=== PATIENT | female | born 1980 | race Caucasian/White ===

== ENCOUNTER 2018-01-12 08:03 | Emergency (ER) | payer OTHER ==
[~2018-01-12] VITALS: Ht 157.5 cm; Wt 81.6 kg
[2018-01-12] MEDS ORDERED: NORFLEX100MG PO (11:03)
[2018-01-12] MEDS ORDERED: KETO10TA2 PO (11:03)
== END 2018-01-12 11:48 | disposition home or self-care (01) ==
LOC: ER 08:03
DX: M54.5 Low back pain (principal)

== ENCOUNTER 2018-03-30 02:23 | Emergency (ER) | payer OTHER ==
[~2018-03-30] VITALS: Ht 157.5 cm; Wt 86.2 kg
[~2018-03-30 02:23] MED LIST: KETO10TA2 PO; NORFLEX100MG PO
[2018-03-30] MEDS ORDERED: ADVAIR 100-501 EACH IH (07:48)
[2018-03-30] MEDS ORDERED: SINGULAIR 10MG10 MG PO (07:48)
[2018-03-30] MEDS ORDERED: ALBUTEROL2.5 MG/3 M IH (07:48)
[2018-03-30] MEDS ORDERED: ZYNCOF 20-400120 ML PO (07:48)
== END 2018-03-30 08:00 | disposition home or self-care (01) ==
LOC: ER 02:23
DX: J45.998 Other asthma (principal)

== ENCOUNTER → 2024-01-06 | Outpatient (CLI) | payer OTHER ==
[~2024-01-06] MED LIST changes: +ADVAIR 100-501 EACH IH; +ALBUTEROL2.5 MG/3 M IH; +SINGULAIR 10MG10 MG PO; +ZYNCOF 20-400120 ML PO
== END | disposition home or self-care (01) ==
LOC: NUCLEAR 08:00
PROVIDERS: ATTEND Internal Medicine Cardiovascular Disease
DX: I87.2 Venous insufficiency (chronic) (peripheral) (principal)

== ENCOUNTER 2024-05-31 10:00 | Outpatient (CLI) | payer OTHER | END 2024-05-31 10:01 | disposition home or self-care (01) | LOC: NUCLEAR 10:00 | PROVIDERS: ATTEND Internal Medicine Cardiovascular Disease | DX: R07.9 Chest pain, unspecified (principal); I10 Essential (primary) hypertension ==

== ENCOUNTER 2024-07-12 09:40 | Outpatient (CLI) | payer OTHER | END 2024-07-12 09:43 | disposition home or self-care (01) | LOC: NUCLEAR 09:40 | PROVIDERS: ATTEND Thoracic Surgery (Cardiothoracic Vascular Surgery) | DX: I73.9 Peripheral vascular disease, unspecified (principal) ==

== ENCOUNTER 2024-11-18 12:26 | Outpatient (CLI) | payer OTHER | END 2024-11-18 12:27 | disposition home or self-care (01) | LOC: NUCLEAR 12:26 | PROVIDERS: ATTEND Internal Medicine Cardiovascular Disease | DX: R55 Syncope and collapse (principal) ==

== ENCOUNTER 2024-11-18 14:13 | Outpatient (CLI) | payer OTHER | END 2024-11-19 08:39 | disposition home or self-care (01) | LOC: TOM 14:13 | PROVIDERS: ATTEND Internal Medicine Cardiovascular Disease | DX: R55 Syncope and collapse (principal) ==